=== PATIENT | female | born 2000 | race Caucasian/White ===

== ENCOUNTER 2021-12-03 21:43 | Emergency (ER) | payer BC ==
[~2021-12-03] VITALS: Ht 165.1 cm; Wt 70.5 kg
[2021-12-03 21:48] VITALS: BP 129/76; TEMP 98.6
[2021-12-03 22:18] VITALS: PULSE 71
== END 2021-12-03 22:18 | disposition home or self-care (01) ==
LOC: COL.ER 21:43
DX: H69.93 Unspecified Eustachian tube disorder, bilateral (principal)